=== PATIENT | female | born 1940 | race Caucasian/White ===

== ENCOUNTER → 2020-02-08 | Day surgery (SDC) | payer MEDICARE ==
[~2020-02-08] MED LIST: DIABETIC MED PO; METFORMIN HCL500 MG PO; MIDAZOLAM HCL 2 MG/2 ML VIAL ONE; OR PHACO EYE KIT ONE; PREOP PHACO EYE KIT ONE
[2020-02-08 11:30] VITALS: BP 148/70
== END | disposition home or self-care (01) ==
LOC: OR 06:48
PROVIDERS: ATTEND Ophthalmology
DX: H25.12 Age-related nuclear cataract, left eye (principal); E11.9 Type 2 diabetes mellitus without complications; Z01.812 Encounter for preprocedural laboratory examination; Z20.828 Contact with and (suspected) exposure to other viral communicable diseases; Z79.84 Long term (current) use of oral hypoglycemic drugs
CPT/HCPCS: 36415; 66984; 82948; U0002; V2632; J2250

== ENCOUNTER → 2020-02-22 | Day surgery (SDC) | payer MEDICARE ==
[~2020-02-22] MED LIST changes: +FENTANYL CITRATE/PF 100MCG/2 ML INJ ONE
[2020-02-22 13:03] VITALS: BP 122/63
== END | disposition home or self-care (01) ==
LOC: OR 09:01
PROVIDERS: ATTEND Ophthalmology
DX: H25.11 Age-related nuclear cataract, right eye (principal); E11.9 Type 2 diabetes mellitus without complications; Z01.812 Encounter for preprocedural laboratory examination; Z20.828 Contact with and (suspected) exposure to other viral communicable diseases; Z79.84 Long term (current) use of oral hypoglycemic drugs
CPT/HCPCS: 36415; 66984; 82948; J2250; J3010; U0002; V2632